=== PATIENT | female | born 1930 | race Caucasian/White ===

== ENCOUNTER 2018-02-09 01:54 | Observation (INO) | payer OTHER, MEDICARE ==
[~2018-02-09] VITALS: Ht 152.4 cm; Wt 68.0 kg
[~2018-02-09 01:54] MED LIST: ALPRAZOLAM0.25 M1 PO; AMLODIPINE BESY10 M1 PO; ASPIRIN EC81 M1 PO; LASIX20 M1 PO; LIPITOR40 M1 PO; LISINOPRIL40 M1 PO; NADOLOL80 M1 PO
--- NOTE | 2018-02-09 10:51 | Operative Report ---
Operative/Inv Procedure Report Surgery Date: 02/09/18 Name of Procedure: colpocleisis, cystoscopy, perineorrhaphy. Pre-Operative Diagnosis: complete pelvic organ prolapse with urinary retention Post-Operative Diagnosis: Complete pelvic organ prolapse with urinary retention and bladder stones Estimated Blood Loss: 50ml to 100ml Surgeon/Head Refrigerating Engineer: Paris Yang MD Anesthesia: laryngeal mask airway Drains: 16fr samuel Specimens: Anterior vaginal epithelium posterior vaginal epithelium in fragments due to ulceration of the posterior epithelium Complications: None Condition: Stable Operative Indication: Complete pelvic organ prolapse with grade 4 cystocele grade 4 rectocele grade for vaginal apex prolapse urinary retention bladder stones with pelvic pain and ulceration of the prolapsed vaginal vault with difficulty urinating Operative/Procedure Note Note: This 87-year-old female with a long history of pelvic organ prolapse. She saw me in my office due to terrible vaginal pain secondary to ulceration of the vaginal vault that was completely everted. She was treated with Estrace cream however this did little to alleviate her pain. She also had several pessaries tried for example L Horn doughnut and ring pessary but was unable to retain any pessaries due to her large introitus and severe prolapse. She was also complaining of difficulty urinating due to kinking of the urethra from the great for prolapse of her bladder. Multiple conversations with the family her daughter specifically and the patient and the patient's lead principal technical architect was engaged to determine if surgery was the only option she had. It was clearly the only option she had and she understood the risks benefits and alternatives of the surgery as well as the potential risks to her cardiovascular system. Given these risks and the potential benefit and there being no alternatives she wished to proceed with the colpocleisis with cystoscopy and possible bilateral ureteral stents and perineorrhaphy. All questions were answered. Illustrations and literature were given to the patient and the patient's daughter and anatomy was reviewed using netters [place]. She wished to proceed and consent was signed. Patient was identified in the holding area and brought to the operating room placed on the operating table in the supine position. Timeout was performed. IV antibiotics were infused. LMA anesthesia was induced. A second IV was placed after obtaining the second type and screen sample. This was done by anesthesia. She was placed in the dorsal lithotomy position. Genitalia was shaved. She was prepped and draped in the standard sterile fashion. A Samuel catheter was placed at the beginning of the surgery. Bladder was left half full. The Samuel was clamped and placed on the patient's abdomen. [place] retractor was placed with 6 stay hooks. Allis clamps were used to grasp the vaginal vault apex. With the epithelium tented and taut 1% lidocaine with epinephrine was infiltrated into the anterior vaginal wall for hydrodistention dissection and controlling bleeding. The marking pen was used to paul out the area of resection of the anterior epithelium in a rectangular shape. An incision was made with #15 blade followed by cutting and coag setting of the Bovie cautery to carefully excise the anterior vaginal wall epithelium to denude it. Point coagulation was performed throughout for any bleeding. The same was done on the posterior vaginal epithelium with after 1% lidocaine with epinephrine was infiltrated for hydrodissection and control bleeding. However this portion was a little more tenuous and difficult due to ulcerations in several areas that was also starting to re-epithelialize. There was taken not to injure the rectum and the enterocele behind it. Periodic rectal exams were performed. The posterior vaginal wall that the and was able to be denuded completely. Both the anterior wall epithelium in its entirety as well as the fragments of the posterior vaginal epithelium were sent to pathology. 2-0 Vicryl interrupted sutures were then placed laterally to narrow the prolapsed vaginal vault. This was then followed by sequential sutures from the vaginal apex up to the bladder neck and posterior fourchette in layers. Cystoscopy was performed throughout this point of the surgery to ensure that the ureters were not kinked off for sutured inadvertently. Each point ureteral reflux was seen or a sensor guidewire was easily passed up. When all of the denuded epithelium from the anterior posterior were sutured together in a mirrored fashion the prolapse was completely reduced into the vaginal vault at this point. The epithelial edges were then sutured together in interrupted fashion with 2-0 Vicryl as well. The colpocleisis was then complete and the entire prolapse was now within the vagina. With the bladder full the patient did leak urine now that the urethra was no longer kinked from the complete pelvic prolapse. An attempt was made to place a urethral sling but with injection of lidocaine with epinephrine she easily bruised and bled and as result the decision was made not to place the sling. We wanted to ensure that she has as minimal bleeding as possible postoperatively and the sling was too much of a risk for her cardiac status. Again a cystoscopy was performed and ureteral Deflux was seen from both orifices. The bladder stones were then evacuated with an Ellik evacuator. These were sent off to pathology as well. The patient had been stable throughout the case up to this point and had received about 700 mL of IV solution. At this point a perineorrhaphy was performed by injecting 1% lidocaine into the posterior fourchette. A wedge resection was removed with the Bovie cautery. 2- 0 Vicryl sutures were then used in interrupted fashion to tighten the posterior fourchette followed by 3-0 Vicryl at the re-opposing epithelium. 16 Khmer Samuel catheter was left in place and attached to a drainage bag. Sponge and needle count were correct at the end of the case. The patient had about 75 mL of blood loss. A vaginal packing impregnated with bacitracin ointment was placed into the vaginal vault and trimmed. To aid in keeping the packing they' re 1 3-0 Vicryl suture was used to close the vaginal opening at the labia majora. She tolerated the procedure well. She was transferred to the recovery room in stable condition. Findings: Good ureteral reflux from both ureteral orifices at the end of the case. Most of the bladder stones evacuated with Ellik evacuator. Minimal oozing at the end of the case. Complete other organ prolapse reduced to inside the vaginal vault.
[2018-02-09 14:17] VITALS: BP 128/70
--- NOTE | 2018-02-09 15:00 | PN- Urology ---
Subjective Subjective: POST OP CHECK Patient s/p colpocleisis, cystoscopy, perineorrhaphy for complete pelvic organ prolapse with urinary retention and bladder stones. Resting comfortably in bed. Complains of mild burning in introitus, better than in PACU. Tolerating a clear liquid diet. Voiding via samuel catheter. Family at bedside. Objective Vital Signs and I&Os Vital Signs Date Time Temp Pulse Resp B/P B/P Pulse O2 O2 Flow FiO2 Mean Ox Delivery Rate 02/09 1417 94.7 59 13 128/70 95 Intake & Output 02/09 1600 02/09 0000 02/08 1600 02/08 0000 Intake Total Output Total Balance Patient 150 lb Weight Physical Exam: Gen: AAOx3 in NAD Hard of hearing. Cor: S1+S2+ Lungs: CTA nano Abd: soft, NT, ND, +BS x4 Perineum: packing noted in vaginal vault. Samuel draining clear yellow urine. No overt signs of bleeding. Labia edematous nano. Ext: no edema or calf tenderness to nano lower extremities. Current Medications: Current Medications Sig/Jimmie Start time Last Medication Dose Route Stop Time Status Admin Acetaminophen 650 MG Q6P PRN 02/09 1330 AC PO Alprazolam 0.25 MG BID PRN 02/09 1330 AC PO 02/16 1214 Alprazolam 0.25 MG BID PRN 02/09 1215 DC PO 02/16 1214 Amlodipine Besylate 10 MG DAILY 02/10 1000 DC PO Amlodipine Besylate 10 MG DAILY 02/10 1000 AC PO Atorvastatin Calcium 40 MG 1700 02/10 1700 AC PO Atorvastatin Calcium 40 MG DAILY 02/10 1000 DC PO Cefazolin Sodium 1,000 MG IQ8 02/09 1600 AC IV 02/10 0001 Dextrose/Sodium 1,000 ML .[id number] 02/09 1330 AC 02/09 Chloride IV 1500 Docusate Sodium 100 MG BID PRN 02/09 1230 AC PO Furosemide 20 MG DAILY 02/10 1000 DC PO Furosemide 20 MG DAILY 02/10 1000 AC PO Heparin Sodium 5,000 UNIT Q8 02/10 0600 AC (Porcine) SC Lisinopril 40 MG DAILY 02/10 1000 DC PO Lisinopril 40 MG DAILY 02/10 1000 AC PO Morphine Sulfate 2 MG Q3P PRN 02/09 1330 AC IV Nadolol 80 MG DAILY 02/10 1000 DC PO Nadolol 80 MG DAILY 02/10 1000 AC PO Ondansetron HCl 4 MG Q6P PRN 02/09 1330 AC IV Oxycodone/ 1 TAB Q4P PRN 02/09 1330 AC Acetaminophen PO Oxycodone/ 2 TAB Q4P PRN 02/09 1330 AC Acetaminophen PO Assessment/Plan Assessment/Plan A: 87 yo female s/p colpocleisis, cystoscopy, perineorrhaphy for complete pelvic organ prolapse with urinary retention and bladder stones. AVSS Plan: Regular diet. Samuel to be removed tomorrow. Packing to be removed tomorrow by Dr. Yang (sewn in place per MD report). OOB and ambulate as tolerated. Pain control to continue as ordered. Core Measures Venous Thromboembolism VTE Risk Factors Surgery No Mechanical VTE Prophylaxis d/t N/A MechProphylax Ordered No VTE Pharm Prophylaxis d/t NA PharmProphylax ordered
[2018-02-09 16:00] VITALS: BP 130/60
[2018-02-09 17:53] VITALS: BP 140/60
[2018-02-09 20:04] VITALS: BP 128/70
[2018-02-10] VITALS: BP 120/64
[2018-02-10 04:00] VITALS: BP 120/68
[2018-02-10 08:01] VITALS: BP 142/68
--- NOTE | 2018-02-10 13:13 | Surgical Discharge Summary ---
Visit Information Visit Dates Admission Date: 02/09/18 Discharge Date: 02/10/18 History of Present Illness Chief Complaint: complete pelvic organ prolapse requiring surgical intervention but with severe cardiac status Medical History Neurological: NONE EENT: NONE Cardiovascular: CAD, hypertension, hyperlipidemia, myocardial infarction Respiratory: NONE Gastrointestinal: NONE Hepatic: NONE Renal: NONE Musculoskeletal: NONE Psychiatric: NONE Endocrine: NONE Blood Disorders: NONE Cancer(s): breast cancer, LEFT MASTECTOMY SPARE PERSON/Reproductive: uterine/bladder prolapse (complete pelvic organ prolapse) History of MRSA: No History of VRE: No History of CDIFF: No Isolation History: Standard Surgical History Pertinent Surgical History: hysterectomy, masectomy Psychosocial History Where Do You Live? Home Who Do You Live With? Patient/Self Services at Home: None What is Your Primary Language? Peruvian Tobacco History: none ETOH Use: denies use Illicit Drug Use History: none Review of Systems: 87yo female with very bothersome pelvic organ prolapse but with severe cardiac status. tried to avoid surgical intervention but her POP was too bothersome and she was in urinary retention with inability to retain pessary so conservative management failed. Physical Exam: abd soft, ND/NT samuel in place draining clear UOP Vaginal packing in place with one vicryl suture No calf tenderness Hospital Course Course Attending Physician: Paris Yang MD Primary Care Physician: John SINGH,[facility] Hospital Course: uneventful Complications: none Allergies: Coded Allergies: No Known Allergies (02/05/18) Significant Procedures: colpocleisis, cystoscopy, perineorrhaphy Pertinent Lab Results: stable Disposition Summary Disposition Principal Diagnosis: complete pelvic organ prolapse with urinary retention and bladder stones who failed conservative management Additional Diagnosis: severe tenuous cardaic status Discharge Disposition: home or self care Discharge Instructions General Discharge Information Code Status: Full Code Patient's Diet: cardiac diet Patient's Activity: no heavy lifting or exercise, no straining with BMs, no baths Follow-Up Instructions/Appts: next week Attending MD Review Statement Attending Statement Attending MD Statement: examined this patient, discuss w/resident/PA/[employer] UNIT OFFICER, discussed with family Attending Assessment/Plan: as above
[2018-02-10 14:19] VITALS: BP 148/60
--- NOTE | 2018-02-10 15:33 | Patient Discharge Instructions ---
Discharge Instructions General Discharge Information You were seen/treated for: PELVIC ORGAN PROLAPSE Special Instructions: PLEASE CALL DR CHILDERS FOR A FOLLOW UP APPOINTMENT AT YOUR EARLIEST CONVENIENCE Diet Continue normal diet: Yes Acute Coronary Syndrome Inclusion Criteria At DC or during hospital stay patient has or had the following: ACS DIAGNOSIS No Discharge Core Measures Meds if any: Prescribed or Continued at Discharge Meds if any: NOT Prescribed or Continued at Discharge Congestive Heart Failure Inclusion Criteria At DC or during hospital stay patient has or had the following: CHF DIAGNOSIS No Discharge Core Measures Meds if any: Prescribed or Continued at Discharge Meds if any: NOT Prescribed or Continued at Discharge Cerebrovascular accident Inclusion Criteria At DC or during hospital stay patient has or had the following: CVA/TIA Diagnosis No Discharge Core Measures Meds if any: Prescribed or Continued at Discharge Meds if any: NOT Prescribed or Continued at Discharge Venous thromboembolism Inclusion Criteria VTE Diagnosis No VTE Type NONE VTE Confirmed by (Test) NONE Discharge Core Measures - Per Current guidelines, there needs to be overlap - treatment for the first 5 days of Warfarin therapy. - If discharged on Warfarin prior to 5 days of - overlap therapy, the patient will need to be - assessed for post discharge needs including - *Post discharge parental anticoagulation - *Warfarin and/or parental anticoagulation education - *Follow up date to check INR post discharge At least 5 days overlap therapy as Inpatient No Meds if any: Prescribed or Continued at Discharge Note: Overlap Therapy is Warfarin and Anticoagulant Meds if any: NOT Prescribed or Continued at Discharge
== END 2018-02-10 17:10 ==
LOC: STS 01:54 → PACUH 10:58 → ENRESERV 12:59 → ENTRNSPT 13:21 → EDTRNSPT 13:53 → EDTRNSPTSTS 13:53 → CMPTRNSPT 14:03 → 2NA 14:04 → ENTRNSPT 02-10 16:36 → 2NA 02-10 17:10 → CMPTRNSPT 02-10 17:23
DX: N81.3 Complete uterovaginal prolapse (principal); R33.9 Retention of urine, unspecified; N21.0 Calculus in bladder; I10 Essential (primary) hypertension; E78.5 Hyperlipidemia, unspecified; I25.2 Old myocardial infarction; K21.9 Gastro-esophageal reflux disease without esophagitis
CPT/HCPCS: 96372; 96374; G0378; J0131; J0690; J1630; J1644; J2405; J7042